=== PATIENT | female | born 1975 | race Caucasian/White ===

== ENCOUNTER → 2017-09-26 | Outpatient (CLI) | payer BC ==
[~2017-09-26] MED LIST: AMOXICILLIN500 MG PO; ANXIETY PILL; ARTHROTEC50 MG PO; ATIVAN0.5 MG PO; AUGMENTIN 875-875 MG PO; BACTRIM DS 8001 TA1 PO; BENADRYL50 MG PO; BENTYL10 MG PO; BLOOD PRESSURE PILL; CARAFATE1 G1 PO; CATAFLAM50 MG PO; CHERATUSSIN AC120 ML PO; CIPRO250 MG PO; CIPROFLOXACIN500 MG PO; FLONASE 0.05% 121 EA NAS; HYDROCODONE BIT1 T11 PO; IBU-8800 MG PO; IMITREX25 MG PO; K-DUR 20MEQ20 MEQ PO; K-DUR20 MEQ PO; K-TAB20 MEQ PO; KEFLEX500 MG PO; LASIX40 MG PO; LOMOTIL 0.025 M1 TA1 PO; MACROBID100 M1 PO; MAXZIDE-25 25MG25 MG PO; MOBIC15 MG PO; MOTRIN800 MG PO; NAPROSYN500 MG PO; OMEPRAZOLE D/R20 MG PO; OMEPRAZOLE40 MG PO; PHENERGAN W/DM120 ML PO; PRAVACHOL20 MG PO; PREDNICOT10 MG PO; PREDNICOT20 MG PO; PROAIR HFA0.09 MG/AC INH; PROTONIX40 MG PO; ROBITUSSIN AC 110 ML PO; SUNMARK OMEPRAZ20 M1 PO; TESSALON PERLE100 M1 PO; TESSALON PERLE200 MG PO; TRAMADOL HCL50 MG PO; ULTRAM50 MG PO; VICODIN 5/500 505 MG PO; VOLTAREN50 M1 PO; WATER PILL; ZITHROMAX250 MG PO; ZOFRAN ODT4 MG SL; ZOFRAN ODT8 MG PO; ZOFRAN4 MG PO; ZOLOFT25 MG PO; ZYRTEC10 MG PO; [UNRECOGNIZED DRUG - OTHER] PO; [UNRECOGNIZED DRUG - REMARK]; [UNRECOGNIZED DRUG - REMARK]; [UNRECOGNIZED DRUG - REMARK]
== END | disposition home or self-care (01) ==
LOC: MAMMO 17:20
DX: Z12.31 Encounter for screening mammogram for malignant neoplasm of breast (principal)

== ENCOUNTER 2017-11-19 19:17 | Inpatient (IN) | payer BC ==
[~2017-11-19] VITALS: Ht 170.1 cm; Wt 113.4 kg
--- NOTE | ~2017-11-19 | ST ---
[place], [place] EXERCISE STRESS TEST REPORT NAME: MALLORIE OSBORN UNIT #: [id number] ROOM: 415 DOCTOR: SELVIN VARENR,SONYA BIRTHDATE: [birth year] DOS: 11/21/2017 REASON FOR TEST: Chest pain. REFERRING PHYSICIAN: Dr. Weber. PHYSICAL EXAMINATION NECK: Supple. LUNGS: Clear anteriorly. HEART: Regular rhythm. PROTOCOL: Bryson protocol. Total stress time 4 minutes 30 seconds. Maximum heart rate 153, which is 86% target heart rate. Peak blood pressure 150/90, adequate response. Total mets 5.9 mets. Sheppard treadmill score +4. SYMPTOMS: The patient is chest pain free, developed shortness of breath, resolved. ELECTROCARDIOGRAM: Resting EKG, sinus rhythm. Stress EKG, no ischemia, no arrhythmias. CONCLUSION: Clinically, the patient is chest pain free and EKG, nonischemic. POST-STRESS COMPLICATIONS: None. SONYA MONTALVO MD CM:STRESS:EXERCISE STRESS TEST REPORT [id number] SONYA MONTALVO MD
--- NOTE | ~2017-11-19 | CON ---
[place], [place] REPORT OF CONSULTATION NAME: MALLORIE OSBORN UNIT #: [id number] ROOM: 415 DOCTOR: ALAYNA SAUNDERS MD BIRTHDATE: [birth year] DOS: 11/21/2017 CHIEF COMPLAINT: "I have just been so depressed." HISTORY OF PRESENT ILLNESS: This is a 41-year-old white female who was admitted due to cardiac workup issues. The patient in the course of her stay has reported that she is horribly depressed. She traces her depression back to approximately 7 years ago when her mother . She handled this the best she could for many years, but states that within the last 3 years specially, the depression has intensified. 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 She states she cannot shut her thoughts off and oftentimes has bad dreams about bad things happening to her family and her children and these dreams will wake her up and that she will not be able to fall back to sleep again. She reports poor appetite that fluctuates with overeating. She states that her current medication regimen has been ineffective. She denies suicidal thoughts, homicidal thoughts or any self-injurious thoughts and is very much wanting to get better, so that she can be there for her family and her children. MENTAL STATUS EXAMINATION: She is alert and oriented. Mood does seem to be horribly depressed. Affect is flat, blunted, and constricted. There are no suicidal thoughts, homicidal thoughts, or self-injurious thoughts. There is no hermelinda, hypomania. There is no psychosis. Memory for the most part is intact. DIAGNOSIS: Major depression, recurrent, severe. PLAN: I will discontinue Lexapro and Cymbalta and Restoril to simplify her regimen. Start Remeron 15 mg at bedtime. I do think she would benefit from counseling and would suggest that she follow up with a counselor in the area. I see no reason for further inpatient psychiatric evaluation or treatment. ALAYNA SAUNDERS MD CM:CONSTR:REPORT OF CONSULTATION 1038 11/21/17 2246 interface
--- NOTE | ~2017-11-19 | CON ---
[place], [place] REPORT OF CONSULTATION NAME: MALLORIE OSBORN UNIT #: [id number] ROOM: 415 DOCTOR: CHRISTIE JAIN ED.D (ALLAN) BIRTHDATE: [birth year] DOS: 11/20/2017 HISTORY OF PRESENT ILLNESS: The patient is a 41-year-old female referred after she made suicidal comments on the medical unit. She is presently on the fourth floor at [facility]. The patient is and has 2 children. Her parents are both and she has 1 sister and 2 brothers. She is presently on SSI. She does follow at the [facility] for her medical care. Her medical history is pertinent for major depressive disorder. She is presently in [place]. Her admission to the hospital was for chest pain. She states she does have a significant amount of anxiety. She does not drink alcoholic beverages or use tobacco related products. This patient was awake, alert and oriented in all three spheres. She was very depressed, however. She denies any suicidal ideation or plan. She states that her doctor at the [facility] recommended she follow up with counseling, but she never did it. She at one time was on Celexa and Cymbalta and I suggested that they restart her medications. I also suggested she follow up with outpatient counseling at the [facility] and she agreed to do so. Her short and long-term memory is intact. Her speech was coherent. Her insight, judgment and concentration are fair. DIAGNOSIS: Major depressive disorder, recurrent. RECOMMENDATIONS: 1. The patient should take antidepressant medications as prescribed. 2. The patient should follow up with the [facility] for outpatient counseling. Thank you very much for this consult. CHRISTIE JAIN ED.D CM:CONSTR:REPORT OF CONSULTATION 1000 11/20/17 1039 interface
[2017-11-19 19:18] VITALS: BP 112/72
[2017-11-19 19:39] LABS: BASO % 0.2 % (0.0-1.0); EOS % 0.4 % (1.0-4.0); HEMATOCRIT 40.5 % (37.0-47.0); HEMOGLOBIN 13.6 g/dl (12.0-16.0); LYMPH # 4.1 10*3/uL (1.3-4.4); LYMPH % 42.3 % (27.0-41.0); MEAN CELL VOLUME 97.4 fl (81.0-99.0); MEAN CORPUSCULAR HGB 32.7 pg (27.0-31.0); MEAN CORPUSCULAR HGB CONC 33.6 g/dl (33.0-37.0); MEAN PLATELET VOLUME 9.8 fl (9.6-12.3); MONO # 0.7 10*3/uL (0.1-1.0); NEUT # 4.8 10*3/uL (2.3-7.9); NEUT % 49.9 % (47.0-73.0); PLATELET COUNT AUTOMATED 224 10*3/uL (130-400); RED BLOOD COUNT 4.16 10*6/uL (4.10-5.10); RED CELL DISTRI WIDTH 13.2 % (0-14.5); WHITE BLOOD COUNT 9.7 10*3/uL (4.8-10.8)
[2017-11-19 19:40] VITALS: BP 129/71
[2017-11-19 19:50] LABS: INTERNATIONAL NORM RATIO 0.9 (2.0-3.5)
[2017-11-19 19:54] LABS: ALBUMIN 3.7 gm/dl (3.1-4.5); ALKALINE PHOSPHATASE 100 U/L (45-117); BUN 16 mg/dl (7-24); CHLORIDE 104 mmol/L (98-107); CREATININE 0.99 mg/dL (0.55-1.02); SGOT/AST 30 IU/L (3-35); SGPT/ALT 37 U/L (12-78); SODIUM 136 mmol/L (136-145); TOTAL PROTEIN 7.8 gm/dL (6.4-8.2)
[2017-11-19 20:09] LABS: BILIRUBIN NEGATIVE (NEGATIVE); BLOOD NEGATIVE (NEGATIVE); CLARITY CLEAR (CLEAR); COLOR YELLOW (YELLOW); GLUCOSE NEGATIVE (NEGATIVE); KETONE NEGATIVE (NEGATIVE); LEUKO ESTERASE NEGATIVE (NEGATIVE); NITRITE NEGATIVE (NEGATIVE); SPECIFIC GRAVITY >= 1.030 (1.005-1.030); UROBILINOGEN 0.2 E.U./dl (0.2-1.0)
[2017-11-19 20:09] LABS: TROPONIN I < 0.015 ng/ml (<0.045)
[2017-11-19 20:10] LABS: ETHYL ALCOHOL < 3.0 mg/dl (<3)
[2017-11-19 20:17] LABS: URINE AMPHETAMINES < 1000 (1000ng/ml); URINE BARBITURATES < 200 (200ng/ml); URINE BENZODIAZEPINES < 200 (200ng/ml); URINE CANNABINOIDS (THC) < 50 (50ng/ml); URINE COCAINE < 300 (300ng/ml); URINE METHADONE < 300 (300ng/ml); URINE OPIATES < 300 (300ng/ml)
[2017-11-19 20:19] LABS: BACTERIA TRACE; EPITHELIAL CELLS 35-40; RBC 0-2 rbc/hpf (0-2); WBC 0-2 wbc/hpf (0-5)
[2017-11-19 20:20] LABS: URINE PHENCYCLIDINE < 25 (25ng/ml)
[2017-11-19 22:40] VITALS: BP 101/55
[2017-11-19 23:42] VITALS: BP 110/55
[2017-11-19] MEDS ORDERED: LISINOPRIL10 M1 PO (23:48)
[2017-11-19] MEDS ORDERED: HYDROCHLOROTHIA25 M1 PO (23:48)
[2017-11-19] MEDS ORDERED: ESCITALOPRAM OX20 MG PO (23:49)
[2017-11-19] MEDS ORDERED: DULOXETINE HCL40 MG PO (23:49)
[2017-11-19 23:55] VITALS: BP 127/68
[2017-11-20 01:56] LABS: FREE T4 1.02 ng/dl (0.76-1.46); TROPONIN I < 0.015 ng/ml (<0.045)
[2017-11-20 05:21] LABS: ALBUMIN 3.5 gm/dl (3.1-4.5); ALKALINE PHOSPHATASE 97 U/L (45-117); BUN 24 mg/dl (7-24); CHLORIDE 104 mmol/L (98-107); CREATININE 0.85 mg/dL (0.55-1.02); PHOSPHOROUS 3.3 mg/dL (2.5-4.9); SGOT/AST 20 IU/L (3-35); SGPT/ALT 34 U/L (12-78); SODIUM 138 mmol/L (136-145); TOTAL PROTEIN 7.3 gm/dL (6.4-8.2)
[2017-11-20 05:55] LABS: BASO % 0.2 % (0.0-1.0); EOS % 0.4 % (1.0-4.0); HEMATOCRIT 40.5 % (37.0-47.0); HEMOGLOBIN 13.2 g/dl (12.0-16.0); LYMPH # 4.1 10*3/uL (1.3-4.4); LYMPH % 44.7 % (27.0-41.0); MEAN CORPUSCULAR HGB 32.3 pg (27.0-31.0); MEAN CORPUSCULAR HGB CONC 32.6 g/dl (33.0-37.0); MEAN PLATELET VOLUME 10.3 fl (9.6-12.3); MONO # 0.7 10*3/uL (0.1-1.0); MONO % 7.8 % (3.0-9.0); NEUT # 4.3 10*3/uL (2.3-7.9); NEUT % 46.7 % (47.0-73.0); PLATELET COUNT AUTOMATED 201 10*3/uL (130-400); RED BLOOD COUNT 4.09 10*6/uL (4.10-5.10); RED CELL DISTRI WIDTH 13.2 % (0-14.5); WHITE BLOOD COUNT 9.1 10*3/uL (4.8-10.8)
[2017-11-20 07:12] LABS: VITAMIN D, 25-HYDROXY 13.4 ng/mL (30-100)
[2017-11-20 08:00] VITALS: BP 120/57
[2017-11-20 12:00] VITALS: BP 108/69
[2017-11-20 16:00] VITALS: BP 117/56
[2017-11-20 20:00] VITALS: BP 125/70
[2017-11-21] VITALS: BP 104/52
[2017-11-21 08:00] VITALS: BP 110/67
[2017-11-21 12:00] VITALS: BP 105/50
[2017-11-21] MEDS ORDERED: Vitamin D PO (14:32)
[2017-11-21] MEDS ORDERED: MIRTAZAPINE15 M2 PO (14:32)
== END 2017-11-21 16:07 | disposition home or self-care (01) | DRG 313 ==
LOC: ED 19:17 → EDHOLD 22:47 → 4E 22:47
PROVIDERS: Internal Medicine Hospice and Palliative Medicine; Physician Assistant
PROC: 4A02XM4 Measurement of Cardiac Total Activity, External Approach (ICD-10-PCS; principal; 2017-11-21)
DX: R07.89 Other chest pain (principal); F33.2 Major depressive disorder, recurrent severe without psychotic features; E55.9 Vitamin D deficiency, unspecified; G89.4 Chronic pain syndrome; M79.7 Fibromyalgia; I10 Essential (primary) hypertension; M25.569 Pain in unspecified knee; Z87.440 Personal history of urinary (tract) infections; Z79.899 Other long term (current) drug therapy; Z98.891 History of uterine scar from previous surgery; Z81.8 Family history of other mental and behavioral disorders

== ENCOUNTER 2017-12-16 11:22 | Emergency (ER) | payer BC ==
[~2017-12-16] VITALS: Ht 170.1 cm; Wt 104.3 kg
[2017-12-16 11:22] VITALS: BP 136/74
[~2017-12-16 11:22] MED LIST changes: +DULOXETINE HCL40 MG PO; +ESCITALOPRAM OX20 MG PO; +HYDROCHLOROTHIA25 M1 PO; +LISINOPRIL10 M1 PO; +MIRTAZAPINE15 M2 PO; +Vitamin D PO
[2017-12-16 11:59] LABS: BASO % 0.4 % (0.0-1.0); EOS # 0.1 10*3/uL (0.0-0.4); EOS % 0.7 % (1.0-4.0); HEMATOCRIT 39.8 % (37.0-47.0); HEMOGLOBIN 13.1 g/dl (12.0-16.0); LYMPH # 2.9 10*3/uL (1.3-4.4); LYMPH % 43.8 % (27.0-41.0); MEAN CELL VOLUME 99.3 fl (81.0-99.0); MEAN CORPUSCULAR HGB 32.7 pg (27.0-31.0); MEAN CORPUSCULAR HGB CONC 32.9 g/dl (33.0-37.0); MEAN PLATELET VOLUME 9.8 fl (9.6-12.3); MONO # 0.5 10*3/uL (0.1-1.0); MONO % 7.9 % (3.0-9.0); NEUT # 3.1 10*3/uL (2.3-7.9); NEUT % 47.1 % (47.0-73.0); PLATELET COUNT AUTOMATED 190 10*3/uL (130-400); RED BLOOD COUNT 4.01 10*6/uL (4.10-5.10); RED CELL DISTRI WIDTH 13.7 % (0-14.5); WHITE BLOOD COUNT 6.7 10*3/uL (4.8-10.8)
[2017-12-16 12:16] LABS: ALBUMIN 3.4 gm/dl (3.1-4.5); BUN 14 mg/dl (7-24); CHLORIDE 107 mmol/L (98-107); CREATININE 0.83 mg/dL (0.55-1.02); SGOT/AST 23 IU/L (3-35); SGPT/ALT 28 U/L (12-78); SODIUM 139 mmol/L (136-145); TOTAL PROTEIN 7.4 gm/dL (6.4-8.2)
[2017-12-16 12:17] LABS: ALKALINE PHOSPHATASE 104 U/L (45-117)
== END 2017-12-16 13:36 | disposition home or self-care (01) ==
LOC: ED 11:22
PROVIDERS: Nurse Practitioner Family
DX: R59.1 Generalized enlarged lymph nodes (principal); I10 Essential (primary) hypertension; F32.9 Major depressive disorder, single episode, unspecified; M79.7 Fibromyalgia; E83.51 Hypocalcemia; Z79.899 Other long term (current) drug therapy

== ENCOUNTER → 2018-01-24 | Day surgery (SDC) | payer BC ==
[~2018-01-24] MED LIST changes: +VITAMIN D350000 UNIT PO
[2018-01-27 16:06] LABS: ACID FAST SPEC PROCESSING Tissue Grinding (.)
[2018-03-08 10:03] LABS: ACID FAST CULTURE Negative (.)
== END | disposition home or self-care (01) ==
LOC: SDC 01-23 11:00
PROVIDERS: Internal Medicine
DX: R59.1 Generalized enlarged lymph nodes (principal)

== ENCOUNTER 2018-01-29 21:15 | Emergency (ER) | payer BC ==
[~2018-01-29] VITALS: Ht 170.1 cm; Wt 104.3 kg
[~2018-01-29 21:15] MED LIST changes: -VITAMIN D350000 UNIT PO
[2018-01-29] MEDS ORDERED: VITAMIN D350000 UNIT PO (21:17)
[2018-01-29 21:51] LABS: BASO % 0.3 % (0.0-1.0); EOS # 0.1 10*3/uL (0.0-0.4); EOS % 0.6 % (1.0-4.0); HEMATOCRIT 37.6 % (37.0-47.0); HEMOGLOBIN 12.5 g/dl (12.0-16.0); LYMPH # 3.5 10*3/uL (1.3-4.4); LYMPH % 44.8 % (27.0-41.0); MEAN CELL VOLUME 97.9 fl (81.0-99.0); MEAN CORPUSCULAR HGB 32.6 pg (27.0-31.0); MEAN CORPUSCULAR HGB CONC 33.2 g/dl (33.0-37.0); MEAN PLATELET VOLUME 9.7 fl (9.6-12.3); MONO # 0.5 10*3/uL (0.1-1.0); MONO % 6.5 % (3.0-9.0); NEUT # 3.7 10*3/uL (2.3-7.9); NEUT % 47.4 % (47.0-73.0); PLATELET COUNT AUTOMATED 171 10*3/uL (130-400); RED BLOOD COUNT 3.84 10*6/uL (4.10-5.10); RED CELL DISTRI WIDTH 12.1 % (0-14.5); WHITE BLOOD COUNT 7.7 10*3/uL (4.8-10.8)
[2018-01-29 22:05] LABS: ALBUMIN 3.3 gm/dl (3.1-4.5); ALKALINE PHOSPHATASE 96 U/L (45-117); BUN 18 mg/dl (7-24); CHLORIDE 108 mmol/L (98-107); CREATININE 0.78 mg/dL (0.55-1.02); POTASSIUM 3.5 mmol/L (3.5-5.1); SGOT/AST 17 IU/L (3-35); SGPT/ALT 24 U/L (12-78); SODIUM 141 mmol/L (136-145); TOTAL PROTEIN 7.3 gm/dL (6.4-8.2)
[2018-01-29 22:28] VITALS: BP 130/85
== END 2018-01-29 23:36 | disposition home or self-care (01) ==
LOC: ED 21:15
PROVIDERS: Nurse Practitioner Family
DX: R09.89 Other specified symptoms and signs involving the circulatory and respiratory systems (principal); R59.9 Enlarged lymph nodes, unspecified; R13.10 Dysphagia, unspecified; G89.4 Chronic pain syndrome; M79.7 Fibromyalgia; I10 Essential (primary) hypertension; Z98.890 Other specified postprocedural states; Z79.899 Other long term (current) drug therapy

== ENCOUNTER → 2018-05-07 | Outpatient (CLI) | payer BC ==
[~2018-05-07] MED LIST changes: +MEDROXYPROGESTER5 M1 PO; +MELOXICAM15 MG PO; +PERCOCET 5-3251 EACH PO; +VITAMIN D350000 UNIT PO
== END | disposition home or self-care (01) ==
LOC: US 00:17
DX: N93.9 Abnormal uterine and vaginal bleeding, unspecified (principal)

== ENCOUNTER 2018-06-08 04:34 | Inpatient (IN) | payer BC ==
[2018-06-03 12:00] VITALS: BP 106/64
[2018-06-06 06:30] VITALS: BP 117/60
[2018-06-06 07:29] LABS: HEMATOCRIT 36.8 % (37.0-47.0); HEMOGLOBIN 12.3 g/dl (12.0-16.0)
[~2018-06-08] VITALS: Ht 170.2 cm; Wt 113.4 kg
[2018-06-08] VITALS (9 sets, daily range): BP systolic 100–142; BP diastolic 46–82
[~2018-06-08 04:34] MED LIST changes: -PERCOCET 5-3251 EACH PO
[2018-06-09] VITALS: BP 111/69
[2018-06-09 06:35] LABS: BASO % 0.1 % (0.0-1.0); HEMATOCRIT 34.1 % (37.0-47.0); HEMOGLOBIN 11.5 g/dl (12.0-16.0); LYMPH # 2.6 10*3/uL (1.3-4.4); LYMPH % 27.1 % (27.0-41.0); MEAN CELL VOLUME 95.3 fl (81.0-99.0); MEAN CORPUSCULAR HGB 32.1 pg (27.0-31.0); MEAN CORPUSCULAR HGB CONC 33.7 g/dl (33.0-37.0); MONO # 0.6 10*3/uL (0.1-1.0); MONO % 6.5 % (3.0-9.0); NEUT # 6.3 10*3/uL (2.3-7.9); PLATELET COUNT AUTOMATED 170 10*3/uL (130-400); RED BLOOD COUNT 3.58 10*6/uL (4.10-5.10); RED CELL DISTRI WIDTH 12.9 % (0-14.5); WHITE BLOOD COUNT 9.6 10*3/uL (4.8-10.8)
[2018-06-09 08:00] VITALS: BP 112/69
[2018-06-09] MEDS ORDERED: PERCOCET 5-3251 EACH PO (09:23)
[2018-06-09 12:00] VITALS: BP 104/60
== END 2018-06-09 12:21 | disposition home or self-care (01) | DRG 743 ==
LOC: SDC 04:34 → 5E 08:00
PROVIDERS: Obstetrics & Gynecology
PROC: 0UT94ZZ Resection of Uterus, Percutaneous Endoscopic Approach (ICD-10-PCS; principal; 2018-06-08)
PROC: 0UB74ZZ Excision of Bilateral Fallopian Tubes, Percutaneous Endoscopic Approach (ICD-10-PCS; principal; 2018-06-08)
DX: D25.9 Leiomyoma of uterus, unspecified (principal); N94.6 Dysmenorrhea, unspecified; I10 Essential (primary) hypertension; F41.9 Anxiety disorder, unspecified; F32.9 Major depressive disorder, single episode, unspecified; M06.9 Rheumatoid arthritis, unspecified; G89.4 Chronic pain syndrome; M79.7 Fibromyalgia; Z87.440 Personal history of urinary (tract) infections; Z98.891 History of uterine scar from previous surgery; Z82.0 Family history of epilepsy and other diseases of the nervous system; Z79.899 Other long term (current) drug therapy

== ENCOUNTER → 2018-10-01 | Outpatient (CLI) | payer BC ==
[~2018-10-01] MED LIST changes: +ATORVASTATIN CA10 M1 PO; +DULOXETINE HCL20 MG PO; +FERROUS SULFAT324 M2 PO; +PERCOCET 5-3251 EACH PO; +ROPINIROLE HY0.25 MG PO; +TRAZODONE50 MG PO
== END | disposition home or self-care (01) ==
LOC: LAB 12:46
DX: R53.83 Other fatigue (principal); R05 Cough

== ENCOUNTER 2019-03-22 22:06 | Emergency (ER) | payer BC ==
[~2019-03-22] VITALS: Ht 170.1 cm; Wt 113.4 kg
[~2019-03-22 22:06] MED LIST changes: -ATORVASTATIN CA10 M1 PO; -DULOXETINE HCL20 MG PO; -FERROUS SULFAT324 M2 PO; -ROPINIROLE HY0.25 MG PO; -TRAZODONE50 MG PO
[2019-03-22 22:09] VITALS: BP 130/90
[2019-03-22 22:48] LABS: BILIRUBIN NEGATIVE (NEGATIVE); BLOOD 2+ (NEGATIVE); CLARITY SL CLOUDY (CLEAR); COLOR YELLOW (YELLOW); GLUCOSE NEGATIVE (NEGATIVE); KETONE NEGATIVE (NEGATIVE); LEUKO ESTERASE 1+ (NEGATIVE); NITRITE NEGATIVE (NEGATIVE); SPECIFIC GRAVITY 1.025 (1.005-1.030); UROBILINOGEN 0.2 E.U./dl (0.2-1.0)
[2019-03-22 23:03] LABS: BACTERIA 2+; MUCOUS 2+; RBC 16-20 rbc/hpf (0-2); WBC 21-30 wbc/hpf (0-5)
== END 2019-03-23 01:00 | disposition home or self-care (01) ==
LOC: ED 22:06
PROVIDERS: Student in an Organized Health Care Education/Training Program
DX: R51 Headache (principal); R42 Dizziness and giddiness; R11.0 Nausea; R61 Generalized hyperhidrosis; G89.29 Other chronic pain; I10 Essential (primary) hypertension; Z79.899 Other long term (current) drug therapy

== ENCOUNTER 2019-03-30 00:08 | Emergency (ER) | payer BC ==
[~2019-03-30] VITALS: Ht 170.1 cm; Wt 113.4 kg
[2019-03-30] MEDS ORDERED: DULOXETINE HCL20 MG PO (00:11)
[2019-03-30] MEDS ORDERED: ATORVASTATIN CA10 M1 PO (00:12)
[2019-03-30] MEDS ORDERED: ROPINIROLE HY0.25 MG PO (00:12)
[2019-03-30] MEDS ORDERED: FERROUS SULFAT324 M2 PO (00:12)
[2019-03-30] MEDS ORDERED: TRAZODONE50 MG PO (00:12)
[2019-03-30 00:13] VITALS: BP 119/81
[2019-03-30] MEDS ORDERED: ZYRTEC10 MG PO (00:55)
[2019-03-30] MEDS ORDERED: ZITHROMAX250 MG PO (00:55)
[2019-03-30] MEDS ORDERED: TESSALON PERLE100 M1 PO (00:55)
== END 2019-03-30 01:14 | disposition home or self-care (01) ==
LOC: ED 00:08
DX: J40 Bronchitis, not specified as acute or chronic (principal); Z79.899 Other long term (current) drug therapy

== ENCOUNTER 2019-05-11 20:09 | Emergency (ER) | payer BC ==
[~2019-05-11] VITALS: Ht 170.1 cm; Wt 117.5 kg
--- NOTE | ~2019-05-11 | EKG ---
[place], [place] ELECTROCARDIOGRAM REPORT NAME: MALLORIE OSBORN UNIT #: [id number] ROOM: DOCTOR: EPIPHANY DRAFT REPORT BIRTHDATE: [birth year] 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
--- NOTE | ~2019-05-11 | EKG ---
[place], [place] ELECTROCARDIOGRAM REPORT NAME: MALLORIE OSBORN UNIT #: [id number] ROOM: DOCTOR: EPIPHANY DRAFT REPORT BIRTHDATE: [birth year] [facility] Test Date: 2019-05-11 Test Time: 23:05:38 Pat Name: MALLORIE OSBORN Department: ED Room: Gender: F [employer] Supervisor: : 1975 Requested By: JOSELUIS KRAMER Order Number: [id number] Reading MD: Devi Davis MD Measurements Intervals [place] Rate: 78 P: 42 WV: 131 QRS: 25 QRSD: 92 T: 7 QT: 420 QTc: 479 Interpretive Statements Sinus rhythm Low voltage, precordial leads Electronically Signed On 05-12-2019 12:22:00 PDT by Devi Davis MD CM:EKGRPT:ELECTROCARDIOGRAM REPORT [id number] 1222 JOSELUIS KRAMER MD EPIPHANY DRAFT REPORT JOSELUIS KRAMER MD
[~2019-05-11 20:09] MED LIST changes: +ATORVASTATIN CA10 M1 PO; +DULOXETINE HCL20 MG PO; +FERROUS SULFAT324 M2 PO; +ROPINIROLE HY0.25 MG PO; +TRAZODONE50 MG PO
[2019-05-11 20:31] LABS: BASO % 0.3 % (0.0-1.0); EOS % 0.2 % (1.0-4.0); HEMATOCRIT 40.4 % (37.0-47.0); HEMOGLOBIN 13.2 g/dl (12.0-16.0); LYMPH # 3.1 10*3/uL (1.3-4.4); LYMPH % 25.7 % (27.0-41.0); MEAN CELL VOLUME 100.2 fl (81.0-99.0); MEAN CORPUSCULAR HGB 32.8 pg (27.0-31.0); MEAN CORPUSCULAR HGB CONC 32.7 g/dl (33.0-37.0); MEAN PLATELET VOLUME 9.9 fl (9.6-12.3); MONO # 0.8 10*3/uL (0.1-1.0); NEUT # 7.9 10*3/uL (2.3-7.9); NEUT % 66.5 % (47.0-73.0); PLATELET COUNT AUTOMATED 241 10*3/uL (130-400); RED BLOOD COUNT 4.03 10*6/uL (4.10-5.10); RED CELL DISTRI WIDTH 12.1 % (0-14.5); WHITE BLOOD COUNT 11.9 10*3/uL (4.8-10.8)
[2019-05-11 20:43] LABS: ACT PARTIAL THROMBO TIME 24.5 SECONDS (20.0-32.1)
[2019-05-11 20:50] LABS: ALBUMIN 3.5 gm/dl (3.1-4.5); ALKALINE PHOSPHATASE 120 U/L (45-117); BUN 19 mg/dl (7-24); CHLORIDE 106 mmol/L (98-107); POTASSIUM 3.6 mmol/L (3.5-5.1); SGOT/AST 10 IU/L (3-35); SGPT/ALT 19 U/L (12-78); SODIUM 137 mmol/L (136-145); TOTAL PROTEIN 7.4 gm/dL (6.4-8.2)
[2019-05-11 20:51] LABS: TROPONIN I < 0.015 ng/ml (<0.045)
[2019-05-11 22:34] VITALS: BP 99/65
[2019-05-12] MEDS ORDERED: ZOFRAN4 MG PO (00:35)
[2019-05-12] MEDS ORDERED: KETOROLAC10 MG PO (00:35)
== END 2019-05-12 02:10 | disposition home or self-care (01) ==
LOC: ED 20:09
PROVIDERS: Emergency Medicine Emergency Medical Services
DX: G43.909 Migraine, unspecified, not intractable, without status migrainosus (principal); I10 Essential (primary) hypertension; M79.7 Fibromyalgia; G89.4 Chronic pain syndrome; Z79.899 Other long term (current) drug therapy; Z98.890 Other specified postprocedural states

== ENCOUNTER 2019-06-18 16:24 | Emergency (ER) | payer BC ==
[~2019-06-18] VITALS: Ht 170.1 cm; Wt 113.4 kg
[~2019-06-18 16:24] MED LIST changes: +KETOROLAC10 MG PO
[2019-06-18 18:45] VITALS: BP 121/81
[2019-06-18] MEDS ORDERED: AMOXICILLIN500 M2 PO ×2 (18:48)
== END 2019-06-18 18:52 | disposition home or self-care (01) ==
LOC: ED 16:24
DX: S00.12XA Contusion of left eyelid and periocular area, initial encounter (principal); J32.9 Chronic sinusitis, unspecified; I10 Essential (primary) hypertension; K21.9 Gastro-esophageal reflux disease without esophagitis; M19.90 Unspecified osteoarthritis, unspecified site; E78.00 Pure hypercholesterolemia, unspecified; Z79.899 Other long term (current) drug therapy; W22.8XXA Striking against or struck by other objects, initial encounter; Y93.89 Activity, other specified; Y92.89 Other specified places as the place of occurrence of the external cause; Y99.8 Other external cause status

== ENCOUNTER 2019-07-14 18:14 | Emergency (ER) | payer BC ==
[~2019-07-14] VITALS: Ht 170.1 cm; Wt 113.4 kg
[~2019-07-14 18:14] MED LIST changes: +AMOXICILLIN500 M2 PO
[2019-07-14 18:42] LABS: BASO % 0.5 % (0.0-1.0); EOS # 0.1 10*3/uL (0.0-0.4); EOS % 0.6 % (1.0-4.0); HEMATOCRIT 44.2 % (37.0-47.0); HEMOGLOBIN 14.3 g/dl (12.0-16.0); LYMPH # 2.8 10*3/uL (1.3-4.4); LYMPH % 32.7 % (27.0-41.0); MEAN CELL VOLUME 99.8 fl (81.0-99.0); MEAN CORPUSCULAR HGB 32.3 pg (27.0-31.0); MEAN CORPUSCULAR HGB CONC 32.4 g/dl (33.0-37.0); MEAN PLATELET VOLUME 9.6 fl (9.6-12.3); MONO # 0.6 10*3/uL (0.1-1.0); MONO % 6.8 % (3.0-9.0); NEUT # 5.1 10*3/uL (2.3-7.9); NEUT % 59.2 % (47.0-73.0); PLATELET COUNT AUTOMATED 294 10*3/uL (130-400); RED BLOOD COUNT 4.43 10*6/uL (4.10-5.10); RED CELL DISTRI WIDTH 12.3 % (0-14.5); WHITE BLOOD COUNT 8.7 10*3/uL (4.8-10.8)
[2019-07-14] MEDS ORDERED: PREDNISONE5 MG PO (18:49)
[2019-07-14 18:54] LABS: ACT PARTIAL THROMBO TIME 24.2 SECONDS (20.0-32.1); INTERNATIONAL NORM RATIO 0.9 (2.0-3.5)
[2019-07-14 18:57] LABS: ALBUMIN 3.5 gm/dl (3.1-4.5); ALKALINE PHOSPHATASE 143 U/L (45-117); BUN 7 mg/dl (7-24); CHLORIDE 104 mmol/L (98-107); CREATININE 0.82 mg/dL (0.55-1.02); POTASSIUM 3.8 mmol/L (3.5-5.1); SGOT/AST 23 IU/L (3-35); SGPT/ALT 28 U/L (12-78); SODIUM 138 mmol/L (136-145); TOTAL PROTEIN 7.8 gm/dL (6.4-8.2)
[2019-07-14 19:05] LABS: B-hCG (QUALITATIVE) NEGATIVE (NEGATIVE)
[2019-07-14 19:09] LABS: ETHYL ALCOHOL < 3.0 mg/dl (<3)
[2019-07-14 19:18] LABS: BILIRUBIN NEGATIVE (NEGATIVE); BLOOD TRACE-INTACT (NEGATIVE); CLARITY CLEAR (CLEAR); COLOR YELLOW (YELLOW); GLUCOSE NEGATIVE (NEGATIVE); KETONE NEGATIVE (NEGATIVE); LEUKO ESTERASE NEGATIVE (NEGATIVE); NITRITE NEGATIVE (NEGATIVE); SPECIFIC GRAVITY <= 1.005 (1.005-1.030); UROBILINOGEN 0.2 E.U./dl (0.2-1.0)
[2019-07-14 19:27] LABS: URINE AMPHETAMINES < 1000 (1000ng/ml); URINE BARBITURATES < 200 (200ng/ml); URINE BENZODIAZEPINES < 200 (200ng/ml); URINE CANNABINOIDS (THC) < 50 (50ng/ml); URINE COCAINE < 300 (300ng/ml); URINE METHADONE < 300 (300ng/ml); URINE OPIATES < 300 (300ng/ml)
[2019-07-14 19:28] LABS: URINE PHENCYCLIDINE < 25 (25ng/ml)
[2019-07-15 00:10] VITALS: BP 158/82
== END 2019-07-15 00:33 | disposition home health service (06) ==
LOC: ED 18:14
PROVIDERS: Emergency Medicine
DX: G43.909 Migraine, unspecified, not intractable, without status migrainosus (principal); G89.29 Other chronic pain; I10 Essential (primary) hypertension; F43.21 Adjustment disorder with depressed mood; K21.9 Gastro-esophageal reflux disease without esophagitis; E78.00 Pure hypercholesterolemia, unspecified; R79.1 Abnormal coagulation profile; Z79.899 Other long term (current) drug therapy

== ENCOUNTER 2019-10-19 17:25 | Emergency (ER) | payer BC ==
[~2019-10-19] VITALS: Ht 213.3 cm; Wt 113.4 kg
[~2019-10-19 17:25] MED LIST changes: +PREDNISONE5 MG PO
[2019-10-19 17:37] VITALS: BP 130/74
[2019-10-19 18:09] LABS: BASO % 0.2 % (0.0-1.0); EOS % 0.5 % (1.0-4.0); HEMATOCRIT 41.2 % (37.0-47.0); HEMOGLOBIN 13.4 g/dl (12.0-16.0); LYMPH # 2.5 10*3/uL (1.3-4.4); LYMPH % 39.5 % (27.0-41.0); MEAN CORPUSCULAR HGB 32.2 pg (27.0-31.0); MEAN CORPUSCULAR HGB CONC 32.5 g/dl (33.0-37.0); MEAN PLATELET VOLUME 9.8 fl (9.6-12.3); MONO # 0.5 10*3/uL (0.1-1.0); MONO % 7.6 % (3.0-9.0); NEUT # 3.3 10*3/uL (2.3-7.9); PLATELET COUNT AUTOMATED 207 10*3/uL (130-400); RED BLOOD COUNT 4.16 10*6/uL (4.10-5.10); WHITE BLOOD COUNT 6.3 10*3/uL (4.8-10.8)
[2019-10-19 18:25] LABS: ALBUMIN 3.2 gm/dl (3.1-4.5); ALKALINE PHOSPHATASE 116 U/L (45-117); BUN 12 mg/dl (7-24); CHLORIDE 107 mmol/L (98-107); CREATININE 0.92 mg/dL (0.55-1.02); POTASSIUM 3.5 mmol/L (3.5-5.1); SGOT/AST 18 IU/L (3-35); SGPT/ALT 23 U/L (12-78); SODIUM 137 mmol/L (136-145); TOTAL PROTEIN 7.1 gm/dL (6.4-8.2)
[2019-10-19] MEDS ORDERED: DOXYCYCLINE100 M3 PO (18:35)
[2019-10-19] MEDS ORDERED: GUAIFEN-CODEINE10 ML PO (18:35)
[2019-10-19] MEDS ORDERED: PROVENTIL HFA6.7 GM INH (18:35)
[2019-10-19] MEDS ORDERED: PREDNISONE20 M1 PO (18:35)
== END 2019-10-19 18:37 | disposition home or self-care (01) ==
LOC: ED 17:25
PROVIDERS: Nurse Practitioner Family
DX: J20.9 Acute bronchitis, unspecified (principal); I10 Essential (primary) hypertension; K21.9 Gastro-esophageal reflux disease without esophagitis; M19.90 Unspecified osteoarthritis, unspecified site; E78.00 Pure hypercholesterolemia, unspecified; Z87.891 Personal history of nicotine dependence; Z79.899 Other long term (current) drug therapy

== ENCOUNTER 2020-07-08 19:07 | Emergency (ER) | payer BC, OTHER ==
[~2020-07-08] VITALS: Ht 170.1 cm; Wt 117.9 kg
[~2020-07-08 19:07] MED LIST changes: +DOXYCYCLINE100 M3 PO; +GUAIFEN-CODEINE10 ML PO; +PREDNISONE20 M1 PO; +PROVENTIL HFA6.7 GM INH
[2020-07-08 19:30] VITALS: BP 107/71
[2020-07-08 20:27] LABS: BILIRUBIN Negative (Negative); BLOOD Negative (Negative); CLARITY Cloudy (Clear); COLOR Yellow (Yellow); GLUCOSE Negative (Negative); KETONE Negative (Negative); LEUKO ESTERASE Negative (Negative); NITRITE Negative (Negative); PH 5.5 (4.5-8.0)
[2020-07-08 20:36] LABS: ALBUMIN 3.4 gm/dl (3.1-4.5); ALKALINE PHOSPHATASE 116 U/L (45-117); BUN 11 mg/dl (7-24); CHLORIDE 108 mmol/L (98-107); CREATININE 0.69 mg/dL (0.55-1.02); LIPASE 141 U/L (73-393); POTASSIUM 4.2 mmol/L (3.5-5.1); SGOT/AST 19 IU/L (3-35); SGPT/ALT 18 U/L (12-78); SODIUM 138 mmol/L (136-145); TOTAL PROTEIN 7.7 gm/dL (6.4-8.2); TROPONIN I < 0.015 ng/ml (<0.045)
[2020-07-08 20:42] LABS: MUCOUS 1+; WBC 0-2 wbc/hpf (0-5)
[2020-07-08 20:42] LABS: BASO % 0.2 % (0.0-1.0); EOS % 0.2 % (1.0-4.0); HEMATOCRIT 41.8 % (37.0-47.0); LYMPH # 2.7 10*3/uL (1.3-4.4); LYMPH % 28.9 % (27.0-41.0); MEAN CELL VOLUME 95.2 fl (81.0-99.0); MEAN CORPUSCULAR HGB 31.4 pg (27.0-31.0); MEAN PLATELET VOLUME 9.4 fl (9.6-12.3); MONO # 0.6 10*3/uL (0.1-1.0); MONO % 6.3 % (3.0-9.0); NEUT # 5.9 10*3/uL (2.3-7.9); NEUT % 64.3 % (47.0-73.0); PLATELET COUNT AUTOMATED 240 10*3/uL (130-400); RED BLOOD COUNT 4.39 10*6/uL (4.10-5.10); RED CELL DISTRI WIDTH 12.3 % (0-14.5); WHITE BLOOD COUNT 9.2 10*3/uL (4.8-10.8)
== END 2020-07-09 01:44 | disposition home or self-care (01) ==
LOC: ED 19:07
PROVIDERS: Internal Medicine
DX: K29.70 Gastritis, unspecified, without bleeding (principal); Z79.899 Other long term (current) drug therapy

== ENCOUNTER → 2020-08-03 | Outpatient (CLI) | payer BC, OTHER | END | disposition home or self-care (01) | LOC: MAMMO 13:00 | PROVIDERS: ATTEND Internal Medicine | DX: Z12.31 Encounter for screening mammogram for malignant neoplasm of breast (principal) ==

== ENCOUNTER 2020-08-27 14:29 | Emergency (ER) | payer BC, OTHER ==
[~2020-08-27] VITALS: Ht 170.1 cm; Wt 113.4 kg
[2020-08-27 14:50] VITALS: BP 102/60
[2020-08-27 15:13] LABS: BASO % 0.3 % (0.0-1.0); EOS # 0.1 10*3/uL (0.0-0.4); EOS % 0.7 % (1.0-4.0); LYMPH % 26.7 % (27.0-41.0); MEAN CELL VOLUME 98.8 fl (81.0-99.0); MEAN CORPUSCULAR HGB 31.1 pg (27.0-31.0); MEAN CORPUSCULAR HGB CONC 31.5 g/dl (33.0-37.0); MEAN PLATELET VOLUME 9.4 fl (9.6-12.3); MONO # 0.5 10*3/uL (0.1-1.0); MONO % 6.9 % (3.0-9.0); PLATELET COUNT AUTOMATED 225 10*3/uL (130-400); RED BLOOD COUNT 4.15 10*6/uL (4.10-5.10); RED CELL DISTRI WIDTH 12.7 % (0-14.5); WHITE BLOOD COUNT 7.6 10*3/uL (4.8-10.8)
[2020-08-27 15:32] LABS: ALBUMIN 3.1 gm/dl (3.1-4.5); ALKALINE PHOSPHATASE 113 U/L (45-117); BUN 15 mg/dl (7-24); CHLORIDE 108 mmol/L (98-107); CREATININE 0.83 mg/dL (0.55-1.02); POTASSIUM 4.3 mmol/L (3.5-5.1); SGOT/AST 10 IU/L (3-35); SGPT/ALT 20 U/L (12-78); SODIUM 139 mmol/L (136-145); TOTAL PROTEIN 7.1 gm/dL (6.4-8.2)
== END 2020-08-27 17:05 | disposition home or self-care (01) ==
LOC: ED 14:29
PROVIDERS: Emergency Medicine
DX: R55 Syncope and collapse (principal); R11.0 Nausea; R10.9 Unspecified abdominal pain; I10 Essential (primary) hypertension; G43.909 Migraine, unspecified, not intractable, without status migrainosus; Z79.899 Other long term (current) drug therapy

== ENCOUNTER → 2020-12-11 | Outpatient (CLI) | payer BC, OTHER | END | disposition home or self-care (01) | LOC: US 00:59 | PROVIDERS: ATTEND Nurse Practitioner Family | DX: K82.8 Other specified diseases of gallbladder (principal); K76.0 Fatty (change of) liver, not elsewhere classified; R10.13 Epigastric pain ==

== ENCOUNTER 2021-08-19 11:15 | Emergency (ER) | payer OTHER ==
[~2021-08-19] VITALS: Ht 170.1 cm; Wt 108.9 kg
[2021-08-19 11:47] LABS: BASO % 0.3 % (0.0-1.0); EOS # 0.1 10*3/uL (0.0-0.4); EOS % 0.7 % (1.0-4.0); HEMATOCRIT 41.1 % (37.0-47.0); LYMPH # 1.8 10*3/uL (1.3-4.4); LYMPH % 26.1 % (27.0-41.0); MEAN CELL VOLUME 97.2 fl (81.0-99.0); MEAN CORPUSCULAR HGB 31.9 pg (27.0-31.0); MEAN CORPUSCULAR HGB CONC 32.8 g/dl (33.0-37.0); MEAN PLATELET VOLUME 9.3 fl (9.6-12.3); MONO # 0.5 10*3/uL (0.1-1.0); MONO % 6.6 % (3.0-9.0); NEUT # 4.6 10*3/uL (2.3-7.9); NEUT % 66.2 % (47.0-73.0); PLATELET COUNT AUTOMATED 222 10*3/uL (130-400); RED BLOOD COUNT 4.23 10*6/uL (4.10-5.10); RED CELL DISTRI WIDTH 12.5 % (0-14.5)
[2021-08-19 12:07] LABS: ALBUMIN 3.1 gm/dl (3.1-4.5); ALKALINE PHOSPHATASE 133 U/L (45-117); BUN 12 mg/dl (7-24); CHLORIDE 108 mmol/L (98-107); CREATININE 0.63 mg/dL (0.55-1.02); POTASSIUM 3.7 mmol/L (3.5-5.1); SGOT/AST 14 IU/L (3-35); SGPT/ALT 20 U/L (12-78); SODIUM 138 mmol/L (136-145); TOTAL PROTEIN 7.2 gm/dL (6.4-8.2)
[2021-08-19 12:49] VITALS: BP 160/92
[2021-08-19] MEDS ORDERED: METHOCARBAMOL500 M1 PO (14:46)
[2021-08-19] MEDS ORDERED: PREDNISONE20 M1 PO (14:46)
== END 2021-08-19 14:49 | disposition home or self-care (01) ==
LOC: ED 11:15
PROVIDERS: Emergency Medicine
DX: M54.12 Radiculopathy, cervical region (principal)

== ENCOUNTER → 2021-10-04 | Outpatient (CLI) | payer OTHER ==
[~2021-10-04] MED LIST changes: +METHOCARBAMOL500 M1 PO
== END | disposition home or self-care (01) ==
LOC: RAD 11:53
PROVIDERS: ATTEND Nurse Practitioner Family
DX: R05.9 Cough, unspecified (principal); R06.2 Wheezing; R09.89 Other specified symptoms and signs involving the circulatory and respiratory systems

== ENCOUNTER → 2022-04-12 | Outpatient (CLI) | payer OTHER | END | disposition home or self-care (01) | LOC: RAD 16:10 | PROVIDERS: ATTEND Nurse Practitioner Family | DX: U07.1 COVID-19 (principal) ==

== ENCOUNTER → 2023-02-07 | Outpatient (CLI) | payer OTHER ==
[2023-02-07 12:35] LABS: BASO % 0.3 % (0.0-1.0); EOS % 0.5 % (1.0-4.0); HEMATOCRIT 43.7 % (37.0-47.0); LYMPH # 1.9 10*3/uL (1.3-4.4); LYMPH % 28.5 % (27.0-41.0); MEAN CELL VOLUME 96.3 fl (81.0-99.0); MEAN CORPUSCULAR HGB 31.9 pg (27.0-31.0); MEAN CORPUSCULAR HGB CONC 33.2 g/dl (33.0-37.0); MONO # 0.4 10*3/uL (0.1-1.0); MONO % 5.4 % (3.0-9.0); NEUT # 4.2 10*3/uL (2.3-7.9); NEUT % 65.1 % (47.0-73.0); PLATELET COUNT AUTOMATED 235 10*3/uL (130-400); RED BLOOD COUNT 4.54 10*6/uL (4.10-5.10); RED CELL DISTRI WIDTH 11.8 % (0-14.5); WHITE BLOOD COUNT 6.5 10*3/uL (4.8-10.8)
[2023-02-07 13:06] LABS: ALKALINE PHOSPHATASE 126 U/L (46-116); BUN 8 mg/dl (9-23); CHLORIDE 105 mmol/L (98-107); CHOLESTEROL 215 mg/dL (<200); LDL CHOLESTEROL 140 mg/dL (9-159); POTASSIUM 3.6 mmol/L (3.4-5.1); SGPT/ALT 12 U/L (10-49); THYROID STIM HORMONE (HS) 1.068 uIU/ml (0.550-4.780); TOTAL PROTEIN 7.4 gm/dL (6.0-8.0); TRIGLYCERIDES 146 mg/dl (<150)
== END | disposition home or self-care (01) ==
LOC: LAB 11:26
PROVIDERS: ATTEND Nurse Practitioner Family
DX: I10 Essential (primary) hypertension (principal); E55.9 Vitamin D deficiency, unspecified; E66.9 Obesity, unspecified; F32.89 Other specified depressive episodes